=== PATIENT | male | born 1950 | race Caucasian/White ===

== ENCOUNTER 2018-04-10 06:33 | Inpatient (IN) | payer MEDICARE, BC ==
[~2018-04-10] VITALS: Ht 185.4 cm; Wt 106.8 kg
[2018-04-10] VITALS (9 sets, daily range): BP systolic 123–147; BP diastolic 57–91; Ht 185.4 cm; Wt 106.8 kg
--- NOTE | ~2018-04-10 | OP ---
PATIENT NAME: FRED HOYT MEDICAL RECORD: [id number] :54 LOCATION:D.M2 D.2101 ADMISSION DATE:04/10/18 SURGEON: LOULOU DEL CASTILLO MD DATE OF OPERATION: 04/11/2018 PROCEDURE: Left heart catheterization, selective coronary angiography, right femoral artery approach. CATHETERS: A 5-Czech sheath, 5/4 left and right Kenzie, 5/4 pig. The procedure was well tolerated. The patient returned to the palomo. Sheath removed. ExoSeal device placed. FINDINGS: Left ventriculography in 30-degree LEARY view. Normal wall motion. Normal systolic function. CORONARY ANATOMY: LEFT MAIN: Left main is free of disease. LAD: Free of disease in the diagonal system. CIRCUMFLEX: Free of disease in the marginal system. RIGHT CORONARY ARTERY: Dominant artery, gives rise to PDA, free of disease. IMPRESSION: Normal systolic function, normal coronary anatomy. TRANSINT:[id number] Voice Confirmation ID: [id number] DOCUMENT ID: [id number] LOULOU DEL CASTILLO MD at 1254 CC: [id number] DICTATION DATE: 04/11/18 0916 EXHIBITIONS AND COLLECTIONS MANAGER: 04/11/18 1209 DIS IN 04/11/18 [place] [address] [place] [address]
--- NOTE | ~2018-04-10 | MORECARE ---
CASE MANAGEMENT DISCHARGE SUMMARY PATIENT: FRED HOYT UNIT: [id number] ADM DATE: 04/10/18 AGE: 67 : 52 SEX: M ROOM/BED: D.2101 AUTHOR: MANAGER DUTCH PHYSICIAN: REFERRING PHYSICIAN: FRANCES GIRALDO MD DATE OF SERVICE: 04/10/18 Discharge Plan Patient Name: FRED HOYT [facility] [facility] 1950 Planned Disposition: Home Anticipated Discharge Date: 04/11/18 Discharge Date: Expected LOS: 1 Initial Reviewer: [email or web address] Initial Review Date: 04/11/2018 Generated: 04/11/18 2:50 pm DCPIA - Discharge Planning Initial Assessment Updated by [id number]: Joselin Katz on 04/11/18 1:48 pm * Is the patient Alert and Oriented? Yes * PCP Shania Tucker * Pharmacy [facility] * Preadmission Environment Home with Family * ADLs Independent * Equipment None * List name and contact numbers for known caregivers / representatives who currently or will assist patient after discharge: jaya Whitaker, * Verbal permission to speak to the caregivers and representatives has been obtained from the patient. Yes * Community resources currently utilized None * Additional services required to return to the preadmission environment? No * Can the patient safely return to the preadmission environment? Yes * Has this patient been hospitalized within the prior 30 days at any hospital? No Patient Name: FRED HOYT Page [id number] All edits/amendments must be made on the electronic document DICTATION DATE: 04/11/18 1350 JOB FOREMAN: 04/11/18 1350 RPT#: [id number] DC DATE: STATUS: ADM IN [facility] [address] [place] [address] END OF REPORT
--- NOTE | ~2018-04-10 | EC ---
PATIENT:FRED HOYT DATE OF SERVICE: 04/10/18 SEX: M MEDICAL RECORD: [id number] DATE OF : 54 LOCATION:D.M2 D.210 AGE OF PATIENT: 67 ADMISSION DATE: 04/10/18 REFERRING PHYSICIAN: INTERPRETING PHYSICIAN: LOULOU DEL CASTILLO MD ECHOCARDIOGRAM REPORT ECHO CHARGES 4 ECHO COMPLETE Date: 04/10 CLINICAL DIAGNOSIS: PALPITATIONS/CP ECHOCARDIOGRAPHIC MEASUREMENTS (adult normal given) AC root (d.<3.7cm) 3.8 cm LV Septum d (<1.2 cm> 1.4 cm Valve Excursion 2.3 cm LV Septum (systole) 1.7 cm Left Atria (s.<4.0cm> 3.8 cm LVPW d(<1.2cm) 1.5 cm RV (d.<2.3cm) 4.1 cm LVPW (sytole) 1.7 cm LV diastole(<5.6CM) 5.6 cm MV E-F(>70mm/sec) cm LV systole 4.2 cm LVOT Diameter 2.1 cm MV exc.(>10mm) 1.8 cm Est.ejection fraction (50-75%) % DOPPLER: LVIT cm/sec A 82.0 cm/sec E 73.0 cm/sec LA cm/sec RVSP 29 mmHg LVOT 94 cm/sec AOP1/2T m/s Asc. Ao 124 cm/sec RVOT 68 cm/sec RA cm/sec PA 113 cm/sec AV Gradient Peak 6.16 mmHg AV Mean 3.35 mmHg AV Area 2.7 cm MV Gradient Peak 2.93 mmHg MV Mean 1.05 mmHg MV Area cm COMMENTS: Practice Management Consultant: 2 GORDON CONNOLLY Strategic Marketing Associate: 3 Dr. Youngblood TAPE# PACS Pericardial Effusion N DATE OF SERVICE: 04/11/2018 Adequate 2D echo, color flow, spectral Doppler, M-mode Borderline LVH. LV internal dimensions are normal. Wall motion is normal. EF is greater than or equal to 55%. Aortic valve is tricuspid. No evidence of stenosis on Doppler interrogation. Left atrium is normal at 3.8 cm. Mitral valve shows no prolapse. Trace MR. Right-sided chamber is grossly normal. Trace TR. ECHOCARDIOGRAM REPORT [id number] FRED HOYT TRANSINT:[id number] Voice Confirmation ID: [id number] DOCUMENT ID: [id number] LOULOU DEL CASTILLO MD at 1254 CC: [id number] DICTATION DATE: 04/11/18837 SHORT PIECE HANDLER: 04/11/18 1142 DIS IN 04/11/18 [address] [place] [address]
--- NOTE | ~2018-04-10 | CN ---
PATIENT NAME:FRED HOYT MEDICAL RECORD: [id number] : 54 LOCATION:George D.2101 ADMIT DATE: 04/10/18 ACCOUNT: [id number] CONSULTING PHYSICIAN: LOULOU DEL CASTILLO MD REFERRING PHYSICIAN: FRANCES GIRALDO MD DATE OF CONSULTATION: 04/10/2018 HISTORY: A 67-year-old gentleman with history of hyperlipidemia, has had 2 episodes of heart racing, chest tightness and pressure, and some breathlessness. First episode self-limited at less than about an hour. Second episode prompted visit to the ER. Found to be in atrial fibrillation with RVR. He had nonspecific ST-T changes via telemetry, converted on his own. He has received Lovenox for CVA prophylaxis. Cardiac enzymes negative at this point. We are asked to see him concerning his cardiovascular status. Of note, he has had some effort intolerance over the last 3-4 months with chest tightness and pressure with exertion. He felt might be component of deconditioning, etc. PAST MEDICAL HISTORY: History of dyslipidemia. ALLERGIES: None known. MEDICATIONS: Atorvastatin 40 daily. SOCIAL HISTORY: Retired. Nonsmoker. Drinks occasional glass of wine. and he are currently traveling via [employer]. REVIEW OF SYSTEMS: The patient reports easy bruising but reports no swollen glands. The patient reports no fever, no night sweats, no significant weight gain, no significant weight loss. No significant exercise tolerance. The patient reports no dry eyes, no irritation, no vision change. Patient reports no difficulty hearing and no ear pain. Patient reports no frequent nose bleeds or nose and sinus problems. Patient reports on arm pain on exertion. No shortness of breath while lying down. No history of heart murmur. Patient reports no cough, no wheezing or coughing up blood. Patient reports no abdominal pain, no vomiting. Normal appetite. No diarrhea and not vomiting blood. No nausea and no constipation. Patient reports no incontinence. No difficulty urinating. No hematuria. No increased frequency. Patient reports no muscle aches. No weakness, no arthralgias, no back pain. No swelling of the extremities. Patient reports no abnormal mole, no jaundice, no rashes. Reports no loss of consciousness. No weakness and no numbness. No seizures, dizziness, or headaches. The patient reports no depression, no sleep disturbance, feeling safe in a relationship and no alcohol abuse. Patient reports on fatigue. Reports no runny nose or sinus pressure. No itching, no hives, and no frequent sneezing. PHYSICAL EXAMINATION: GENERAL: Pleasant gentleman, in no acute distress. VITAL SIGNS: Blood pressure 132/88. Pulse 93 and regular. HEENT: Normocephalic and atraumatic. NECK: No JVD or bruit. HEART: Regular currently. LUNGS: Good air excursion. ABDOMEN: Soft and nontender. EXTREMITIES: Pulses 2+. There is no edema. CONSULT REPORT [id number] FRED HOYT IMPRESSION: Atrial fibrillation with RVR accompanied by angina. PLAN: We will plan for diagnostic angiography and intervention based on above. TRANSINT:[id number] Voice Confirmation ID: [id number] DOCUMENT ID: [id number] LOULOU DEL CASTILLO MD at 1117 CC: [id number] DICTATION DATE: 04/10/18 0958 EXPLOSIVE OPERATOR SUPERVISOR: 04/10/18 1400 ADM IN [place] [address] [place] [id number]
--- NOTE | ~2018-04-10 | HEMODYNAMI ---
PATIENT:FRED HOYT MEDICAL RECORD: [id number] : 54 LOCATION:[facility].210 ADMISSION DATE: 04/10/18 Generatedon:04/11/20189:14 Patient name: FRED HOYT Patient #: [id number] SSN: : 1950 Date of study: 04/11/2018 Page: Of Hemodynamic Procedure Report Patient Data Patient Demographics Procedure consent was obtained First Name: FRED Gender: Male Last Name: EVELINA : 1950 Patient #: [id number] Age: 67 year(s) Race: Unknown Additional ID: [id number] Contact details Address: [facility] [address] State: [place] City: [place] Zip code: [address] Admission Admission Data Admission Date: 04/10/2018 Admission Time: 7:50 Room #: D.2101 Procedure Procedure Types Cath Procedure Diagnostic Procedure LHC LHC w/Coronaries Procedure Description Procedure Date Procedure Date: 04/11/2018 Procedure Start Time: 8:54 Procedure End Time: 9:09 Procedure Staff Name Function Ramon Pope MD Performing Physician Saumya Fontana RT Monitor Yvette Najera RT Scrub Laurence Tracey RN Nurse Procedure Data Cath Procedure Fluoroscopy Diagnostic fluoroscopy Total fluoroscopy Time: 1.2 time: 1.2 min min Diagnostic fluoroscopy Total fluoroscopy dose: 392 dose: 392 mGy mGy Contrast Material Contrast Material Type Amount (ml) Isovue 300 62 Entry Location Entry Primary Successful Side Size Upsize Upsize Entry Closure Succes sful Closure Location (Fr) 1 (Fr) 2 (Fr) Remarks Device Remarks Femoral Right 5 Fr Exoseal artery Estimated blood loss: 10 ml Diagnostic catheters Device Type Used For End Catheter Placement MULTIPACK JL 4.0 5Fr Procedure catheter MULTIPACK 3DRC 5Fr Procedure catheter MULTIPACK Pigtail 5 Fr Ventriculography catheter Procedure Complications No complications Procedure Medications Medication Administration Route Dosage Oxygen etCO2 Nasal cannula 2 l/min Lidocaine 2% added to field 20 Heparin Flush Bag added to field 2 bags (1000units/500ml NS) 0.9% NaCl I.V. 100 ml/hr Radial Cocktail I.A. 1 syringe (Verapomil 2mg/Nitro 400mcg/Heparin 1500units) Versed I.V. 1 mg Fentanyl I.V. 50 mcg Versed I.V. 1 mg Fentanyl I.V. 50 mcg Versed I.V. 1 mg Fentanyl I.V. 50 mcg Versed I.V. 1 mg Fentanyl I.V. 50 mcg Hemodynamics Rest Heart Rate: 79 (bpm) Pressure Samples Time Site Value (mmHg) Purpose Heart Use Rate(bpm) 9:07 LV 98/7,9 Snapshot 72 9:07 AO 115/73(93) Pullback 73 9:07 LV 110/17,21 Pullback 73 Gradients Valve Time Site 1 Site 2 Mean SEP/DFP Peak To Heart Use (mmHg) (sec/min) Peak Rate (mmHg) (bpm) Aortic 9:07 LV AO 0 12 0 73 110/17,21 115/73(93) Calculations Valve P-P Mean Valve Index Valve Source Name Gradient Area Flow (cm2) Aortic 0 0 0 0 Snapshots Pre Cath Intra NCS Post Cath Vital Signs Time Heart Resp SPO2 etCO2 NIBP (mmHg) Rhythm Pain Sedation Rate (ipm) (%) (mmHg) Status Level (bpm) 8:35:15 75 13 97 35.4 164/93(141) NSR 0 (11) 10(A) , No pain 8:39:35 71 13 96 37.6 146/83(114) NSR 0 (11) 10(A) , No pain 8:43:47 67 14 96 0.7 121/86(104) NSR 0 (11) 10(A) , No pain 8:47:53 64 14 97 27.1 122/80(102) NSR 0 (11) 10(A) , No pain 8:52:01 63 13 97 39.1 120/72(97) NSR 0 (11) 10(A) , No pain 8:56:07 67 15 95 27.8 113/80(90) NSR 0 (11) 10(A) , No pain 9:00:12 64 14 94 33.8 128/73(92) NSR 0 (11) 9(A) , No pain 9:04:24 67 13 97 37.6 118/70(100) NSR 0 (11) 9(A) , No pain 9:08:32 68 14 95 31.6 133/73(104) NSR 0 (11) 9(A) , No pain 9:12:17 70 14 94 20.3 106/86(99) NSR 0 (11) 10(A) , No pain Medications Time Medication Route Dose Verified Delivered Reason Notes Effectiveness by by 8:36:19 Oxygen etCO2 2 l/min Ramon Dang used for Nasal St Sanya Tracey RN procedure cannula 8:36:25 Lidocaine 2% added 20ml Ramon Ramon for local to vial [facility] anesthetic field MD COLON 8:36:32 Heparin Flush added 2 bags Ramon Navarro used for Bag to [facility] procedure (1000units/500ml field MD COLON NS) 8:36:40 0.9% NaCl I.V. 100 Ramon Dang Per ml/hr St Sanya Tracey RN physician 8:36:53 Radial Cocktail I.A. 1 Ramon Navarro for femoral (Verapomil syringe [facility] vasodilation access 2mg/Nitro MD COLON obtained, 400mcg/Heparin cocktail 1500units) not used. 8:53:15 Versed I.V. 1 mg Ramon Dang for sedation St Sanya Tracey RN, MD 8:53:20 Fentanyl I.V. 50 mcg Ramon Dang for sedation St Sanya Tracey RN, MD 8:56:23 Versed I.V. 1 mg Ramon Dang for sedation St Sanya Tracey RN, MD 8:56:28 Fentanyl I.V. 50 mcg Ramon Dang for sedation St Sanya Tracey RN, MD 9:00:53 Versed I.V. 1 mg Ramon Navarro for sedation St Sanya Pope MD, MD 9:00:57 Fentanyl I.V. 50 mcg Ramon Navarro for sedation St Sanya Pope MD, MD 9:05:05 Versed I.V. 1 mg Ramon Navarro for sedation St Sanya Pope MD, MD 9:05:09 Fentanyl I.V. 50 mcg Ramon Navarro for sedation St Sanya Pope MD, MD Procedure Log Time Note 8:19:35 Diagnostic Cath Status : Elective 8:19:50 Laurence Tracey RN sent for patient. Start room use. 8:19:51 Time tracking: Regular hours (M-F 7:00 - 5:00) 8:19:56 Plan of Care:Hemodynamics will remain stable., Cardiac rhythm will remain stable., Comfort level will be maintained., Respiratory function will remain adequate., Patient/ family verbilizes understanding of procedure., Procedure tolerated without complication., Recovers from procedure without complications.. 8:34:07 Patient received from Med II to CCL 2 Alert and oriented. Tansferred to table in Supine position. 8:34:08 Warm blankets applied, and osmany hugger turned on for patient comfort. 8:34:08 Correct patient and procedure confirmed by team. 8:34:10 Signed procedure consent form obtained from patient. 8:34:11 ECG and BP/O2 sat monitors applied to patient. 8:34:11 Vital chart was started 8:34:18 Baseline sample Acquired. 8:34:33 Rhythm: sinus rhythm 8:34:35 Baseline sample Acquired. 8:34:39 Full Disclosure recording started 8:34:41 H&P Date Dictated: 04/11/2018 New H&P dictated by physician.. 8:34:44 Pre-procedure instructions explained to patient. 8:34:44 Pre-op teaching completed and patient verbalized understanding. 8:34:46 Family in patients room. 8:34:47 Patient NPO since Midnight. 8:34:48 Is the patient allergic to Iodine/contrast media? No. 8:34:50 Was the patient premedicated? No 8:34:51 Is patient on blood thinner?Yes 8:34:55 ACC The patient was administered the following blood thiners within the last 24 hours: ACCLovenox 8:34:57 Patient diabetic? No. 8:34:59 Previous problem with sedation/anesthesia? No ? 8:35:01 Snore? Yes 8:35:02 Sleep apnea? No 8:35:03 Deviated septum? No 8:35:03 Opens mouth fully? Yes 8:35:04 Sticks out tongue? Yes 8:35:06 Airway obstruction? No ? 8:35:11 Dentures? No ? 8:35:14 Pre procedure: right dorsailis pedis pulse 2+ Normal; easily identifiable; not easily obliterated 8:35:17 Pre procedure: left dorsailis pedis pulse 2+ Normal; easily identifiable; not easily obliterated 8:35:19 Patient pain scale 0/10 ?. 8:35:22 Lab results completed and on chart. 8:35:28 Right Radial & Right Groin area was prepped with chlora-prep and draped in sterile fashion 8:35:29 Alarms reviewed by R. N. 8:35:30 Sharps counted by scrub and verified by R.N. 8:36:19 Oxygen 2 l/min etCO2 Nasal cannula was administered by Laurence Tracey RN; used for procedure; 8:36:25 Lidocaine 2% 20ml vial added to field was administered by Ramon Pope MD; for local anesthetic; 8:36:32 Heparin Flush Bag (1000units/500ml NS) 2 bags added to field was administered by Ramon Pope MD; used for procedure; 8:36:40 0.9% NaCl 100 ml/hr I.V. was administered by Laurence Tracey RN; Per physician; 8:36:53 Radial Cocktail (Verapomil 2mg/Nitro 400mcg/Heparin 1500units) 1 syringe I.A. was administered by Ramon Pope MD; for vasodilation; femoral access obtained, cocktail not used. 8:42:26 Physician arrived 8:49:47 Zero performed for pressure channel P1 8:53:03 --------ALL STOP TIME OUT------ 8:53:05 Final Timeout: patient, procedure, and site verified with staff and physician. All members of the team are in agreement. 8:53:10 Right Radial & Right Groin site verified by team. 8:53:14 Physical assessment completed. ASA score P 2 - A patient with mild systemic disease as per Ramon Pope MD. 8:53:15 Versed 1 mg I.V. was administered by Laurence Tracey RN; for sedation; 8:53:20 Fentanyl 50 mcg I.V. was administered by Laurence Tracey RN; for sedation; 8:53:22 Sedation plan: IV Moderate Sedation Medication:Versed, Fentanyl 8:53:31 Use device set Radial Dx or PCI 8:53:33 ACIST Syringe (36244) opened to sterile field. 8:53:34 Medline Cath Pack ([id number]) opened to sterile field. 8:53:34 Bag Decanter (2002) opened to sterile field. 8:53:34 DIAGNOSTIC WIRE .035 260cm J wire (933373) opened to sterile field. 8:53:35 ACIST Hand Control (04461) opened to sterile field. 8:53:36 ACIST Manifold (94472) opened to sterile field. 8:53:36 Tegaderm 4 x 4 (1626W) opened to sterile field. 8:53:38 MBrace Wrist Support ([id number]) opened to sterile field. 8:54:37 Procedure started. 8:54:56 Local anesthetic to right radial artery with Lidocaine 2% by Ramon Pope MD.INITIAL ACCESS ONLY 8:56:23 Versed 1 mg I.V. was administered by Laurence Tracey RN; for sedation; 8:56:28 Fentanyl 50 mcg I.V. was administered by Laurence Tracey RN; for sedation; 9:00:53 Versed 1 mg I.V. was administered by Ramon Pope MD; for sedation; 9:00:57 Fentanyl 50 mcg I.V. was administered by Ramon Pope MD; for sedation; 9:01:59 Use device set Multipack Set 9:02:24 Local anesthetic to right femoral artery with Lidocaine 2% by Ramon Pope MD.ADDITIONAL ACCESS 9:02:36 SHEATH 5Fr Prelude ([id number]) opened to sterile field. 9:02:50 DIAGNOSTIC Multipack 5Fr catheter set (JH3459) opened to sterile field. 9:03:01 A 5 Fr sheath was inserted into the Right Femoral artery 9:03:27 A MULTIPACK JL 4.0 5Fr catheter was advanced over the wire and used for Procedure. 9:03:47 LCA angiography performed. 9:04:51 Catheter removed. 9:05:00 A MULTIPACK 3DRC 5Fr catheter was advanced over the wire and used for Procedure. 9:05:05 Versed 1 mg I.V. was administered by Ramon Pope MD; for sedation; 9:05:09 Fentanyl 50 mcg I.V. was administered by Ramon Pope MD; for sedation; 9:05:39 RCA angiography performed. 9:05:55 Catheter removed. 9:06:05 A MULTIPACK Pigtail 5 Fr catheter was advanced over the wire and used for Ventriculography. 9:06:14 EXOSEAL 5Fr (EX500) opened to sterile field. 9:06:25 LV angiography performed. 9:07:26 EF : 50 % 9:07:29 Catheter removed. 9:07:44 Sheath removed intact; hemostasis achieved with Exoseal to the Right Femoral artery. 9:07:47 Procedure ended.(Physican Out) 9:07:58 Fluoroscopy time 01.20 minutes. 9:08:03 Fluoroscopy dose: 392 mGy 9:08:03 Flurop Dose total: 392 9:08:23 Contrast amount:Isovue 300 62ml. 9:08:25 Sharps counted by scrub and verified by R.N. 9:08:42 Insertion/operative site no bleeding no hematoma. 9:08:45 Post-op/insertion site Right Femoral artery dressed using a 4 x 4 and Tegaderm. 9:08:47 Post Procedure Pulses reassessed and unchanged 9:08:51 Post-procedure physical assessment completed. ASA score P 2 - A patient with mild systemic disease as per Ramon Pope MD. 9:08:54 Post procedure rhythm: unchanged. 9:08:57 Estimated blood loss: 10 ml 9:08:58 Post procedure instruction explained to patient.Patient verbalizes understanding. 9:09:15 Procedure and supply charges have been captured, reviewed, submitted and are correct. 9:09:41 Procedure Complication : No complications 9:09:45 Vital chart was stopped 9:09:45 See physician's report for complete and final results. 9:09:47 Report given to Pre/Post Procedure Room. 9:09:51 Patient transfered to Pre/Post Procedure Room with Stretcher. 9:09:53 Procedure ended. 9:09:53 Full Disclosure recording stopped 9:09:57 End room use (Document Last) Device Usage Item Name Manufacture Quantity Catalog Hospital Part Current Minima l Lot# / Number Charge Number Stock Stock Serial# Code ACIST Acist 1 24173 [id number] 087560 [id number] 20 Syringe ZocDoc (31325) Systems Inc Medline Cath Cardinal 1 [id number] 906473 95285 794944 5 Pack Health ([id number]) Bag Decanter Microtek 1 217206 58859 564859 5 () Medical Inc. DIAGNOSTIC St [place] 1 623928 492053 709337 728208 30 WIRE .035 260cm J wire (826507) ACIST Hand Acist 1 09353 980589 280619 304159 5 Control Medical (22977) Systems Inc ACIST Acist 1 22667 938640 842642 027575 5 Manifold Medical (05952) Systems Inc Tegaderm 4 x 3M 1 1626W 459987 212029 690001 5 4 (1626W) MBrace Wrist Advanced 1 140-0250-00 924963 49979 437479 5 Support Vascular ([id number]) Dynamics SHEATH 5Fr Merit 1 [id number] 237604 353000 891161 5 Prelude Medical ([id number]) DIAGNOSTIC Cardinal 1 JQ7792 519987 40651 600357 30 Multipack Health 5Fr catheter set (VF2572) MULTIPACK JL Cardinal 1 053633 5 4.0 5Fr Health catheter MULTIPACK Cardinal 1 205280 5 3DRC 5Fr Health catheter MULTIPACK Cardinal 1 496275 5 Pigtail 5 Fr Health catheter EXOSEAL 5Fr Cardinal 1 EX500 322837 251647 266992 10 (EX500) Health Signature Audit [place] Stage Time Signature Unsigned Intra-Procedure 04/11/2018 Saumya Fontana 9:14:18 AM RT(R) Signatures Monitor : Saumya Fontana Signature : RT Date : Time : [address] [address]
[2018-04-10] MEDS ORDERED: LIPITOR10 MG PO (06:48)
[2018-04-10] MEDS ORDERED: XALATAN 0.0052.5 ML EACH EYE (06:48)
[2018-04-10 07:35] LABS: BASOPHILS 0.2 % (0-2); EOSINOPHILS 0.4 % (0-7); HEMATOCRIT 44.4 % (42.0-54.0); HEMOGLOBIN 15.2 g/dL (13.5-17.5); IMMATURE GRANULOCYTES 0.2 % (0-5); MCH 30.8 pg (26.0-34.0); MCHC 34.2 g/dL (31.0-37.0); MCV 90.1 fL (80.0-100.0); MEAN PLATELET VOLUME 11.3 fL (7.4-10.4); MONOCYTES 4.1 % (2-11); NEUTROPHILS 73.1 % (40-80); PLATELET COUNT 208 10x3/uL (130-400); RBC 4.93 10x6/uL (4.20-6.10); RDW 12.8 % (11.5-14.5); WBC 9.3 10x3/uL (4.8-10.8)
[2018-04-10 07:49] LABS: ALBUMIN 3.9 g/dL (3.4-5.0); ALKALINE PHOSPHATASE 47 U/L (46-116); ALT (SGPT) 22 U/L (10-68); BILIRUBIN - TOTAL 0.52 mg/dL (0.2-1.3); CALC OSMOLALITY 283 mosm/kg (275-300); CALCIUM 8.7 mg/dL (8.5-10.1); CARBON DIOXIDE 28.6 mmol/L (21.0-32.0); CHLORIDE - SERUM 105 mmol/L (98-107); CREATININE - SERUM 0.8 mg/dL (0.6-1.3); GLUCOSE 131 mg/dL (74-106); POTASSIUM - SERUM 3.9 mmol/L (3.5-5.1); PROTEIN - SERUM 7.1 g/dL (6.4-8.2); SODIUM 142 mmol/L (136-145); UREA NITROGEN 10 mg/dL (7-18); eGFR NON AFRICAN AMERICAN > 90 mL/min (90-120)
[2018-04-10 08:14] LABS: CKMB 1.4 U/L (0.0-3.6); T4 THYROXIN - FREE 1.15 ng/dL (0.76-1.46); THYROID STIMULATING HORMONE 1.96 uIU/mL (0.36-3.74); TROPONIN-I < 0.017 ng/mL (0.000-0.060)
[2018-04-11 01:16] VITALS: BP 135/77
[2018-04-11 05:10] VITALS: BP 128/80
[2018-04-11 05:37] LABS: BASOPHILS 0.3 % (0-2); EOSINOPHILS 1.7 % (0-7); HEMATOCRIT 39.4 % (42.0-54.0); HEMOGLOBIN 13.3 g/dL (13.5-17.5); IMMATURE GRANULOCYTES 0.1 % (0-5); LYMPHOCYTES 32.9 % (15-50); MCH 30.4 pg (26.0-34.0); MCHC 33.8 g/dL (31.0-37.0); MCV 90.2 fL (80.0-100.0); MEAN PLATELET VOLUME 11.2 fL (7.4-10.4); MONOCYTES 9.1 % (2-11); NEUTROPHILS 55.9 % (40-80); PLATELET COUNT 178 10x3/uL (130-400); RBC 4.37 10x6/uL (4.20-6.10); RDW 12.8 % (11.5-14.5); WBC 7.1 10x3/uL (4.8-10.8)
[2018-04-11 06:04] LABS: CALC OSMOLALITY 285 mosm/kg (275-300); CALCIUM 8.1 mg/dL (8.5-10.1); CARBON DIOXIDE 31.3 mmol/L (21.0-32.0); CHLORIDE - SERUM 105 mmol/L (98-107); CHOL - HDL RATIO 2.9 ratio (2.3-4.9); CHOLESTEROL, TOTAL 144 mg/dL (0-200); CREATININE - SERUM 0.8 mg/dL (0.6-1.3); GLUCOSE 109 mg/dL (74-106); HDL CHOLESTEROL 50 mg/dL (32-96); LDL CHOLESTEROL 68 mg/dL (0-100); LDL-HDL RATIO 1.4 ratio (1.5-3.5); POTASSIUM - SERUM 3.4 mmol/L (3.5-5.1); SODIUM 143 mmol/L (136-145); TRIGLYCERIDE 134 mg/dL (30-200); UREA NITROGEN 12 mg/dL (7-18); eGFR NON AFRICAN AMERICAN > 90 mL/min (90-120)
[2018-04-11] MEDS ORDERED: CORDARONE200 MG PO (15:45)
== END 2018-04-11 17:56 | disposition home or self-care (01) | DRG 287 ==
LOC: D.ER 06:33 → D.M2 07:50
PROVIDERS: Family Medicine; Internal Medicine Interventional Cardiology
PROC: B2151ZZ Fluoroscopy of Left Heart using Low Osmolar Contrast (ICD-10-PCS; 2018-04-11)
PROC: 4A023N7 Measurement of Cardiac Sampling and Pressure, Left Heart, Percutaneous Approach (ICD-10-PCS; 2018-04-11)
PROC: B2111ZZ Fluoroscopy of Multiple Coronary Arteries using Low Osmolar Contrast (ICD-10-PCS; principal; 2018-04-11 08:19)
DX: I48.91 Unspecified atrial fibrillation (principal); I10 Essential (primary) hypertension; E78.5 Hyperlipidemia, unspecified; I20.9 Angina pectoris, unspecified; Z87.891 Personal history of nicotine dependence